=== PATIENT | male | born 1960 | race Caucasian/White ===

== ENCOUNTER → 2018-05-30 | Day surgery (SDC) | payer OTHER ==
[~2018-05-30] MED LIST: ACETAMINOPHEN 1,000 MG/100 ML BTL IV ONE; ACETAMINOPHEN W/ CODEINE 300MG/30MG TABLET PO ONE; BUPIVACAINE 0.5% W/EPI MPF 30 ML VIAL IVP ONE; CEFAZOLIN 2 Gram 2 GM/50 ML BAG IVPB ONE; DIPHENHYDRAMINE HCL 50 MG/ML VIAL IVP ONE; EPINEPHRINE 1 MG/ML AMPUL SQ ONE; FENTANYL PF 100MCG/2ML VIAL IV ONE; HYDROMORPHONE HCL 2 MG/ML VIAL IV ONE; KETOROLAC 30 MG/ML VIAL IVP ONE; LIDOCAINE 2% MDV (20MG/ML) 20ML VIAL IV ONE; MIDAZOLAM HCL 2MG/2ML VIAL IV ONE; ONDANSETRON HCL IV 4 MG/2 ML VIAL IVP ONE; PROPOFOL 10 MG/ML VIAL IV ONE; ROCURONIUM BROMIDE 50MG/5ML VIAL IV ONE; SEVOFLURANE 250 ML INH ONE; SUCCINYLCHOLINE 20 MG/ML 10ML IVP ONE
--- NOTE | 2018-06-02 22:05 | Operative Note ---
DATE OF SURGERY: 05/30/2018. PREOPERATIVE DIAGNOSES: 1. LEFT SHOULDER ROTATOR CUFF TEAR. 2. AC JOINT ARTHROSIS. POSTOPERATIVE DIAGNOSES: 1. LEFT SHOULDER ROTATOR CUFF TEAR. 2. AC JOINT ARTHROSIS. 3. PARTIAL BICEPS TENDON TEAR AND ANTERIOR LABRUM TEAR. PROCEDURES: 1. DIAGNOSTIC ARTHROSCOPY. 2. ARTHROSCOPIC ACROMIOPLASTY WITH SUBACROMIAL DECOMPRESSION. 3. ARTHROSCOPIC EXCISION OF THE DISTAL CLAVICLE AND AC JOINT 1 CM. 4. ARTHROSCOPIC ROTATOR CUFF REPAIR. 5. ARTHROSCOPIC BICEPS TENOTOMY. SURGEON: NATHALIE SIMMONS M.D. ANESTHESIA: GENERAL ENDOTRACHEAL, INTERSCALENE BLOCK WITH CATHETER. COMPLICATIONS: NONE. ESTIMATED BLOOD LOSS: MINIMAL. COMPONENTS PLACED: One [employer] 5 mm Regenesorb anchor and one MultiFix anchor. INDICATIONS FOR OPERATION: This is a 57-year-old male who has had persistent pain and dysfunction in his shoulder for several years. He failed nonoperative treatment. He had a preoperative ultrasound that showed a high-grade bursal partial, if not full-thickness, rotator cuff tear and he is scheduled for the procedures above. I explained the risks and benefits thoroughly in detail for the diagnoses and procedures including but not limited to infection, nerve injury, vessel injury, persistent pain, stiffness, numbness and tingling in his shoulder, re-tear of his rotator cuff and need for further procedures and all of his questions were answered. Rehab and course were outlined and he agreed to proceed. PROCEDURE: The patient brought to the O.R. and placed in the beach chair position for surgery and his left upper extremity and shoulder were prepped and draped in sterile fashion. The left shoulder was prepped after it was draped again and time out was performed. Next, the glenohumeral joint, subacromial space, and AC joint were injected with 0.5% Marcaine with Epinephrine. Preoperatively, his should revealed full range of motion with no shoulder instability. Next, a standard posterior arthroscopic portal was established 2.0 cm inferior and 1.0 cm medial to the posterolateral corner of the acromion. An anterior portal was established with the rotator interval under direct visualization and diagnostic arthroscopy was performed. The biceps tendon was partially torn and significantly shredded, therefore we just cut and released that from the labrum and debrided that. The anterior labrum was partially torn and we debrided that. The posterior superior labrum was normal. The axillary recess was normal. The posterior inferior labrum was normal. The glenoid and humeral head articular cartilage were normal. The undersurface of the rotator cuff was thoroughly inspected. There was a partial-thickness in the anterior ligament about 10 to 20% of the supraspinatus. We debrided that lightly with a shaver and back posteriorly to the barrier with some tensile failure and some light degenerative changes but no complete tear here. The superior and middle glenohumeral ligaments were intact. The subscap tendon and subscap recess were normal. Anterior inferior labrum and glenohumeral ligaments degenerative tearing, otherwise normal. Next, the anterior and posterior subacromial portals were established. The tissue ablator was inserted in the anterior subacromial portal and subacromial bursectomy was performed outlining the anterior lateral edge of the acromion we released the coracoacromial ligament completely. We opened up the inferior AC joint capsule. Next, the lateral portal was established off the posterior margin of the AC joint. A 5 mm barrel albert was inserted there and we took off strips of bone working from lateral to medial and anterior to posterior, converting the type II acromion to a planar surface. We used a rasp to smooth the subacromial surface and verified it was flat with a probe from the posterior portal. Next, the albert was inserted in the anterior portal. We burred down to the medial acromial facet. We resected the distal clavicle 1 cm. We made small stab incision superior to the AC joint and inserted the shaver there and smoothed both bony surfaces to verify the AC joint was completely free of any bony impingement or bony fragments. Next, we did rasp on the surface of the acromion. Next, we thoroughly inspected the bursal surface and cuff and it was torn. There was a significant tear about 80% of the width of the bursal surface. It was worn down, sitting medially. We placed a probe in an accessory anterior lateral portal that we established and the probe went right through the tendon intraarticularly easily. Therefore, we completed the tear with an #11 blade about 1.5 to 2 cm wide at this area, debrided further in the greater tuberosity to the articular margin with our shaver. Next, we localized for a rotator cuff anchor off the acromial edge and made a small stab incision there and inserted the punch tap at the base of the tear site to the articular margin and prepared the hole. Next, we inserted the anchor, buried beneath the surface of bone. Next was passed each limb of suture working from posterior to anterior. We covered the entire tear site with two mattress stitches about 2 cm medial to the cuff tear edge. We then tied those down through a disposable cannula with a taut-line hitch sliding lock knot, backed it up with three reverse hitch alternating post throws. This tucked down the medial surface of the attachment nicely to the cuff. Next, then we loaded that on the MultiFix anchor eyelet, pulled the sutures through the eyelet and then placed that eyelet through our cannula into our greater tuberosity over the edge now and tapped that down until the anchor engaged in the bone. We then screwed the anchor, tensioning the sutures nicely until it was buried beneath the surface of bone. This tucked down the cuff tear edge nicely. We cut the sutures flush to the anchor. The scope and equipment was removed. The scope incisions were covered with Steri -Strips. Sterile dressing was applied. [facility] He tolerated the procedures well. No intraoperative complications. All sponge, needle, and blade counts correct. Recovery room stable, neurovascularly intact. He will be discharged as an outpatient with [facility] Nurse and follow-up in two weeks. cc: Dr. Jaci Palm JOB NUMBER: [id number] MTDD
== END | disposition home or self-care (01) ==
LOC: SUR 12:01
PROVIDERS: ATTEND Orthopaedic Surgery
DX: M75.112 Incomplete rotator cuff tear or rupture of left shoulder, not specified as traumatic (principal); S46.212A Strain of muscle, fascia and tendon of other parts of biceps, left arm, initial encounter; M19.012 Primary osteoarthritis, left shoulder; S43.432A Superior glenoid labrum lesion of left shoulder, initial encounter; I10 Essential (primary) hypertension; E78.00 Pure hypercholesterolemia, unspecified
CPT/HCPCS: 29827; 29824; 29826; 29828; 01630; 64486; J1885; J2405; J3010; J1170; J0690; 76942; C1713; J0171; J0330; J1200